=== PATIENT | female | born 1990 | race Caucasian/White ===

== ENCOUNTER 2021-09-30 04:20 | Emergency (ER) | payer MEDICAID, SELFPAY ==
[2021-09-30 04:22] VITALS: BP 140/102; PULSE 145; RESP 22; TEMP 36.8; O2SAT 95; BMI 34.4
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
[2021-09-30 05:03] LABS: Urine Pregnancy, HCG Qual. Negative (Negative)
[2021-09-30 05:44] VITALS: BP 152/78; PULSE 100; RESP 22; TEMP 36.8; O2SAT 97
== END 2021-09-30 05:46 | disposition home or self-care (01) ==
PROVIDERS: Emergency Provider Emergency Medicine
DX: S06.0X0A Concussion without loss of consciousness, initial encounter (principal); S50.11XA Contusion of right forearm, initial encounter; S40.011A Contusion of right shoulder, initial encounter; S80.01XA Contusion of right knee, initial encounter; S00.83XA Contusion of other part of head, initial encounter; T74.11XA Adult physical abuse, confirmed, initial encounter; Y04.2XXA Assault by strike against or bumped into by another person, initial encounter; Y92.019 Unspecified place in single-family (private) house as the place of occurrence of the external cause; Z88.2 Allergy status to sulfonamides; Z88.5 Allergy status to narcotic agent
CPT/HCPCS: 70450; 70486; 81025; 99282

== ENCOUNTER 2022-02-24 16:28 | Emergency (ER) | payer MEDICAID, SELFPAY ==
[2022-02-24 17:10] VITALS: BP 132/92; PULSE 77; RESP 18; TEMP 36.7; O2SAT 100; BMI 31.4
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
[2022-02-24 17:52] VITALS: BP 132/92; PULSE 77; RESP 18; TEMP 36.7; O2SAT 100
== END 2022-02-24 17:56 | disposition home or self-care (01) ==
PROVIDERS: Emergency Provider Nurse Practitioner
DX: J32.9 Chronic sinusitis, unspecified (principal)
CPT/HCPCS: 99212; G0463

== ENCOUNTER 2022-02-28 08:01 | Emergency (ER) | payer MEDICAID, SELFPAY ==
[2022-02-28 08:10] VITALS: BP 152/93; PULSE 80; RESP 19; TEMP 36.7; O2SAT 97; BMI 28.5
--- NOTE | 2022-02-28 08:34 | HMH.EDUTC ---
[facility] [place] Disposition Clinical Impression: Persistent dyspnea after COVID-19 Disposition: Home, Self-Care Condition on Discharge: Good Instructions: DI for COVID-19 (Suspected or Confirmed ) Additional Instructions: Follow up with PCP Wednesday Stop Prednisone Continue Amoxil Prescriptions: Guaifenesin/Dextromethorphan [Mucinex Dm ER 1,200-60 mg Tab] 1 tab PO BID 10 Days #20 tab Transmission Status: Pending to [facility] Albuterol Sulfate [Proair Hfa] 2 inh IH Q4HP PRN 30 Days #1 each PRN Reason: Wheezing Transmission Status: Pending to [facility] Referrals: Provider,Referral, MD [Primary Care Provider] - Forms: Work/School Release Time of Disposition: 11:03 Medical Decision Making - Medical Records Medical records reviewed: Yes: I reviewed the patient's medical records. - Jadon Inquiry Pt receiving controlled substance: No Vital Signs: 02/28/22 08:10 Temperature 98.0 F Temperature Source Oral Pulse Rate [Right Brachial] 80 Respiratory Rate 19 Blood Pressure [Right Arm] 152/93 H Blood Pressure Mean [Right Arm] 112 Blood Pressure Source [Right Arm] Automatic Cuff Blood Pressure Position [Right Arm] Sitting 02 Sat by Pulse Oximetry 97 Oxygen Delivery Method Room Air - Lab Data Lab results reviewed: Yes: I reviewed the patient's lab results. Lab Results 02/28/22 09:02: WBC 10.2, RBC 5.01, Hgb 15.0, Hct 43.9, MCV 87.6, MCH 29.9, MCHC 34.1, RDW 13.0, Plt Count 490 H, MPV 7.8, Neut % (Auto) 71.3, Lymph % (Auto) 21.4, [place] % (Auto) 6.2, Eos % (Auto) 0.4, Baso % (Auto) 0.6, Neut # (Auto) 7.3, Lymph # (Auto) 2.2, [place] # (Auto) 0.6, Eos # (Auto) 0.0, Baso # (Auto) 0.1 02/28/22 09:02: Sodium 138, Potassium 3.5, Chloride 101, Carbon Dioxide 25, Anion Gap 15.5 H, BUN 10, Creatinine 0.50 L, Estimated Creat Clear 183, Estimated GFR 141, Est GFR ( Amer) 171, Glucose 118 H, Calcium 9.0, Total Bilirubin < 0.1 L, AST 34, ALT 39, Alkaline Phosphatase 107, Total Protein 6.9, Albumin 4.0, Globulin 2.9, Albumin/Globulin Ratio 1.4 02/28/22 09:02: D-Dimer < 0.25 Result diagrams: 02/28/22 09:02 02/28/22 09:02 Orders (Tests/Meds): ORDERS Category Date Time Status 12-lead EKG Request [ECG Request by /Jessika] Stat Y 02/28/22 08:43 Ordered - Radiology Data #1 Image(s): Chest Image Reviewed: Yes I have reviewed radiologist's interpretation Preliminary Findings: Normal/NAD, No Infiltrates Seen PROCEDURE INFORMATION: Exam: XR Chest Exam date and time: 02/28/2022 8:42 AM Age: 32 years old Clinical indication: Shortness of breath and other: Chest heaviness TECHNIQUE: Imaging protocol: Radiologic exam of the chest. Views: 2 views. COMPARISON: No relevant prior studies available. FINDINGS: Lungs: No evidence of acute pulmonary process. Pleural spaces: Unremarkable. No pleural effusion. No pneumothorax. Heart/Mediastinum: Unremarkable. No cardiomegaly. Bones/joints: Unremarkable. Intraperitoneal space: There are surgical clips in the right upper quadrant. IMPRESSION: No evidence of acute pulmonary process. - ECG Data Tracing #1 I reviewed this ECG and interpreted as documented below: ECG initial impression date: 02/28/22 ECG initial impression time: 09:13 ECG normal with no acute: arrhythmias, ischemia, conduction abnormalities, chamber hypertrophy Normal Sinus Rhythm: Yes [facility] [place] HPI - General Stated complaint: dizzy, elevated bp Time Seen by Provider: 02/28/22 08:40 Mode of Arrival: Ambulatory Source of Information: Patient Limitations: No Limitations Description of Symptoms (Recalled from Triage Doc. by RN): PATIENT C/O ELEVATED BLOOD PRESSURE, DIZZINESS, LIGHT-HEADED, CHEST HEAVINESS, HEADACHE, AND TINGLING IN HANDS AND FEET X 3 DAYS HEENT Symptoms (Recalled from RN notes): Yes Resp Symptoms (Recalled from RN notes): No Skin Symptoms (Recalled from RN notes): No MS Remy
--- NOTE | 2022-02-28 08:43 | XR_ITS ---
PROCEDURE INFORMATION: Exam: XR Chest Exam date and time: 02/28/2022 8:42 AM Age: 32 years old Clinical indication: Shortness of breath and other: Chest heaviness TECHNIQUE: Imaging protocol: Radiologic exam of the chest. Views: 2 views. COMPARISON: No relevant prior studies available. FINDINGS: Lungs: No evidence of acute pulmonary process. Pleural spaces: Unremarkable. No pleural effusion. No pneumothorax. Heart/Mediastinum: Unremarkable. No cardiomegaly. Bones/joints: Unremarkable. Intraperitoneal space: There are surgical clips in the right upper quadrant. IMPRESSION: No evidence of acute pulmonary process.
--- NOTE | 2022-02-28 09:12 | ECG_ITS ---
APPROVED REPORT Exam: Resting ECG HR:67 bpm ECG Measurements Heart Rate 67 AXES NC 124 P 17 QRSd 80 QRS 63 QT 414 T 62 QTc 430 Conclusion SINUS RHYTHM WITH SINUS ARRHYTHMIA NORMAL ECG UNCONFIRMED REPORT Electronically signed by : Daniel Mathis MD 03/02/2022 14:06:07
[2022-02-28 09:20] LABS: Basophils # 0.1 K/mm3 (0-0.2); Basophils % 0.6 % (0.1-2.0); Eosinophils % 0.4 % (0.1-12.0); Hematocrit 43.9 % (37.0-47.0); Lymphocytes # 2.2 K/mm3 (0.7-4.5); Lymphocytes % 21.4 % (10-50); Mean Corpuscular HGB Conc 34.1 g/dL (31.8-35.4); Mean Corpuscular Hemoglobin 29.9 pg (27.0-31.2); Mean Corpuscular Volume 87.6 fl (81-99); Mean Platelet Volume 7.8 fl (7.4-10.4); Monocytes # 0.6 K/mm3 (0.1-1.0); Monocytes % 6.2 % (1.7-9.3); Neutrophils # 7.3 K/mm3 (1.8-7.8); Neutrophils % 71.3 % (37.0-80.0); Platelet Count 490 K/mm3 (142-424); Red Blood Count 5.01 M/mm3 (4.20-5.40); White Blood Count 10.2 K/mm3 (4.8-10.8)
[2022-02-28 09:24] LABS: Alanine Aminotransferase 39 U/L (12-78); Albumin/Globulin Ratio 1.4 (1.1-1.8); Alkaline Phosphatase 107 U/L (38-126); Anion Gap 15.5 mEq/L (5-15); Aspartate Amino Transferase 34 U/L (14-36); Blood Urea Nitrogen 10 mg/dl (7-17); Carbon Dioxide 25 mmol/L (22.0-30.0); Chloride 101 mmol/L (98-107); Creatinine Clearance Estimated 183 mL/min (50-200); Estimated Glomerular Filt Rate 141 ml/min (>60); GFR (African American) 171 ML/MIN (>60); Globulin 2.9 g/dL (1.3-3.2); Glucose 118 mg/dl (74-100); Potassium 3.5 mmoL/L (3.5-5.1); Sodium 138 mmol/L (136-145); Total Protein,Serum 6.9 g/dl (6.3-8.2)
[2022-02-28 09:34] LABS: Bilirubin,Total < 0.1 mg/dl (0.2-1.3)
[2022-02-28 10:47] LABS: D-Dimer < 0.25 ug/mL (0.0-0.5)
[2022-02-28 11:00] VITALS: BP 130/90; PULSE 80; RESP 19; TEMP 36.7; O2SAT 97
[2022-02-28 11:04] VITALS: BP 130/90
== END 2022-02-28 11:04 | disposition home or self-care (01) ==
PROVIDERS: Emergency Provider Physician Assistant
DX: R06.00 Dyspnea, unspecified (principal); Z86.16 Personal history of COVID-19; R42 Dizziness and giddiness; R03.0 Elevated blood-pressure reading, without diagnosis of hypertension; R07.9 Chest pain, unspecified; R51.9 Headache, unspecified; R53.83 Other fatigue; R23.2 Flushing; R53.1 Weakness; R06.02 Shortness of breath; R07.1 Chest pain on breathing; R05.9 Cough, unspecified; R09.89 Other specified symptoms and signs involving the circulatory and respiratory systems; Z72.0 Tobacco use; R20.2 Paresthesia of skin
CPT/HCPCS: 71046; 80053; 85025; 85378; 93005; 99212; G0463

== ENCOUNTER 2022-04-13 18:56 | Emergency (ER) | payer MEDICAID, SELFPAY ==
[2022-04-13 19:16] VITALS: BP 0/0; PULSE 0; RESP 0; TEMP -17.7; TEMP 0
== END 2022-04-13 19:17 | disposition left against medical advice (07) ==
LOC: UTC 18:59
PROVIDERS: Emergency Provider Nurse Practitioner Family; PCP Family Medicine
DX: Z53.21 Procedure and treatment not carried out due to patient leaving prior to being seen by health care provider (principal)

== ENCOUNTER 2022-05-06 11:39 | Emergency (ER) | payer OTHER, SELFPAY ==
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
--- NOTE | 2022-05-06 12:04 | XR_ITS ---
FINAL REPORT CLINICAL HISTORY: injury few days ago. still having pain FINDINGS: 2 views of the right humerus were obtained. There is no acute fracture or dislocation. The joint spaces appear intact. There is no acute soft tissue abnormality. IMPRESSION: No acute process. Reviewed, Interpreted and Dictated by Jorge Whalen III, MD Transcribed by Dandre Martins Authenticated and [facility]
--- NOTE | 2022-05-06 12:04 | XR_ITS ---
FINAL REPORT CLINICAL HISTORY: injury FINDINGS: RIGHT SHOULDER: 3 views of the right shoulder were obtained. There is no acute fracture or dislocation. The joint spaces are intact. There is no soft tissue abnormality. IMPRESSION: No acute fracture Reviewed, Interpreted and Dictated by Jorge Whalen III, MD Transcribed by Dandre Martins Authenticated and [facility]
--- NOTE | 2022-05-06 12:04 | XR_ITS ---
FINAL REPORT CLINICAL HISTORY: injury FINDINGS: 2 views of the right forearm were obtained. There is no acute fracture or dislocation. The joint spaces are intact. There is no soft tissue abnormality. IMPRESSION: No acute abnormality. Reviewed, Interpreted and Dictated by Jorge Whalen III, MD Transcribed by Dandre Martins Authenticated and [facility]
--- NOTE | 2022-05-06 12:04 | XR_ITS ---
FINAL REPORT CLINICAL HISTORY: injury FINDINGS: 3 views of the right hand were obtained. There is no acute fracture or dislocation. The joint spaces are intact. There is no soft tissue abnormality. IMPRESSION: No acute process. Reviewed, Interpreted and Dictated by Jorge Whalen III, MD Transcribed by Dandre Martins Authenticated and [facility]
[2022-05-06 12:09] VITALS: BP 151/90; PULSE 87; RESP 16; TEMP 36.8; O2SAT 97; BMI 33.0
[2022-05-06 12:29] LABS: UTC Pregnancy Test, Urine Negative (Negative)
[2022-05-06 13:24] VITALS: BP 151/90; PULSE 87; RESP 16; TEMP 36.8
== END 2022-05-06 13:31 | disposition home or self-care (01) ==
PROVIDERS: Emergency Provider Nurse Practitioner Family; PCP Family Medicine
DX: S69.91XA Unspecified injury of right wrist, hand and finger(s), initial encounter (principal); M79.601 Pain in right arm; M25.511 Pain in right shoulder; M79.641 Pain in right hand; W19.XXXA Unspecified fall, initial encounter
CPT/HCPCS: 73030; 73060; 73090; 73130; 81025; 99213; G0463

== ENCOUNTER → 2022-05-19 09:34 | Outpatient (CLI) | payer MEDICAID, SELFPAY ==
--- NOTE | 2022-05-19 09:34 | MR_ITS ---
FINAL REPORT TECHNIQUE: Multiplanar MR without contrast. CLINICAL HISTORY: right wrist injury. MOVING BOXES ON Apr AT WORK. BOX FELL AND FELT A POP. PAIN GOES UP ARM. NO SURGERY. FINDINGS: The osseous structures have an unremarkable appearance. Specifically no evidence of fracture or bone contusion is present. Carpal tunnel is unremarkable. The TFCC is intact. Visualized tendons are unremarkable. Major ligaments are intact. No cystic or soft tissue mass lesion is seen. IMPRESSION: Unremarkable exam. Reviewed, Interpreted and Dictated by Chiki Blount MD Transcribed by Dandre Martins Authenticated and . [facility]
--- NOTE | 2022-05-19 09:44 | XR_ITS ---
FINAL REPORT CLINICAL HISTORY: RULE OUT METAL FOREIGN BODY FOR MRI patient stated metal in eye on the right FINDINGS: ORBITS Look up and look down views were obtained. No fracture is identified. Density projecting over the left maxillary sinus could be due to sinusitis or mucosal thickening. No foreign body is identified. IMPRESSION: No radiopaque foreign body. Reviewed, Interpreted and Dictated by Chiki Blount MD Transcribed by Dandre Martins Authenticated and [facility]
== END ==
PROVIDERS: PCP Family Medicine; Visit Provider Orthopaedic Surgery
DX: S63.521A Sprain of radiocarpal joint of right wrist, initial encounter (principal); H05.53 Retained (old) foreign body following penetrating wound of bilateral orbits
CPT/HCPCS: 70200; 73221

== ENCOUNTER 2022-06-08 15:08 | Emergency (ER) | payer MEDICAID, SELFPAY ==
--- NOTE | 2022-06-08 15:18 | EXP.UTC ---
Discharge Plan Disposition Patient Disposition: Home, Self-Care Condition: Good Prescriptions Prescriptions: New azithromycin [Zithromax] 250 mg tablet 250 mg PO UD DOSE PK Qty: 6 0RF Rx Instructions: Take two (2) tablets today, then one (1) tablet days #2 thru #5 benzonatate [benzonatate] 100 mg capsule 100 mg PO TIDP PRN (Reason: Cough) Qty: 30 0RF methylprednisolone 4 mg Tablets,Dose Pack 4 mg PO DIRECTED Qty: 21 0RF Discontinued methylprednisolone 4 MG tablet 4 mg PO DIRECTED Qty: 21 0RF Rx Instructions: Take as directed on package instructions No Action diclofenac sodium [Voltaren Arthritis Pain] 1 % gel 2 g topical QID Qty: 100 1RF Rx Instructions: apply to single elbow, wrist or hand; for hand includes palm/fingers/back of hand fluticasone propionate 120 SPRAY bottle 1 spr NS DAILY Qty: 1 0RF Rx Instructions: one spray in each nostril daily amoxicillin-pot clavulanate 1 EACH tablet 1 tab PO BID Qty: 14 0RF dextromethorphan-guaifenesin 1 EACH tablet extended release 12 hr 1 tab PO BID 10 Days Qty: 20 0RF albuterol sulfate 8.5 GM HFA aerosol inhaler 2 inh IH Q4HP PRN (Reason: Wheezing) 30 Days Qty: 1 0RF ibuprofen [IBU] 800 mg tablet 800 mg PO Q8HP PRN (Reason: Moderate Pain) Qty: 30 0RF Referrals Follow up/Referrals: Julio Cesar Mireles [Primary Care Provider] - See instructions Activity Restrictions/Add. Instructions Additional Instructions/Restrictions: Drink plenty of fluids. Take tylenol or ibuprofen for pain or fever. Take the medications as directed. Follow up with your regular doctor. GO TO THE ER FOR ANY WORSENING SYMPTOMS Clinical Impressions Clinical Impression: Sinusitis Instructions Patient Instructions: Sinusitis, DI for Sinusitis Discharge ED Provider: Amandeep Thompson [facility] [place] HPI General Stated complaint: nose bleed,congestion,sore throat,RAMIREZ Time Seen by Provider: 06/08/22 15:18 History of Present Illness Provider Complaint: She states that for the past 1 week she has had a cough, sore throat, low grade fever and sinus congestion. Related Data Previous Rx's Medication Instructions Recorded amoxicillin 875 mg-potassium 1 tab PO BID #14 tabs 02/24/22 clavulanate 125 mg tablet fluticasone propionate 50 1 spr intranasal DAILY #1 ea 02/24/22 mcg/actuation nasal spray,suspension albuterol sulfate 90 mcg/actuation 2 inh inhalation Q4HP PRN Wheezing 02/28/22 aerosol inhaler 30 days #1 ea dextromethorphan-guaifenesin ER 60 1 tab PO BID 10 days #20 tabs 02/28/22 mg-1,200 mg tab,extend release,12hr ibuprofen 800 mg tablet (IBU) 800 mg PO Q8HP PRN Moderate Pain 05/06/22 #30 tabs diclofenac sodium 1 % topical gel 2 g topical QID #100 grams 05/28/22 (Voltaren Arthritis Pain) azithromycin 250 mg tablet 250 mg PO UD DOSE PK #6 tabs 06/08/22 (Zithromax) benzonatate 100 mg capsule 100 mg PO TIDP PRN Cough #30 caps 06/08/22 methylprednisolone 4 mg tablets in 4 mg PO DIRECTED #21 tabs 06/08/22 a dose pack Allergies Allergy/AdvReac Type Severity Reaction Status Date / Time codeine Allergy Verified 06/08/22 15:39 paroxetine [From Paxil] Allergy Verified 06/08/22 15:39 Sulfa (Sulfonamide Allergy Verified 06/08/22 15:39 Antibiotics) [facility] Social History Smoking Status: Current every day smoker alcohol intake: never current occupational status: other Travel in the last 8 weeks: None ROS Obtained: Yes All systems reviewed & no additional complaints except as documented Constitutional Constitutional: Reports chills and Reports fever(s) Eyes Eyes: Denies eye discharge ENT Ears, Nose, Mouth, and Throat: Reports as per HPI Cardiovascular Cardiovascular: Denies chest pain Respiratory Respiratory: Denies chest congestion and Reports cough Gastrointestinal Gastrointestingal: Reports nausea; Denies abdomi
[2022-06-08 15:35] VITALS: BP 118/77; PULSE 62; RESP 18; TEMP 36.9; O2SAT 97; BMI 33.0
[2022-06-08 15:51] LABS: UTC Strep Screen (Rapid) Negative (Negative)
[2022-06-08 16:17] LABS: Adenovirus,PCR Not Detected (NotDetected); Bordetella Pertussis Not Detected (NotDetected); Chlamydophila Pneumoniae, PCR Not Detected (NotDetected); Coronavirus 19, PCR Not Detected (NotDetected); Coronavirus 229E Not Detected (NotDetected); Coronavirus NL63 Not Detected (NotDetected); Coronavirus OC43 Not Detected (NotDetected); Coronovirus HKU1,PCR Not Detected (NotDetected); Human Metapneumovirus Not Detected (NotDetected); Influenza A, PCR Not Detected (NotDetected); Influenza AH1, 2009 Not Detected (NotDetected); Influenza AH1, PCR Not Detected (NotDetected); Influenza AH3,PCR Not Detected (NotDetected); Influenza B, PCR Not Detected (NotDetected); Mycoplasma Pneumoniae, PCR Not Detected (NotDetected); Parainfluenza 1, PCR Not Detected (NotDetected); Parainfluenza 2, PCR Not Detected (NotDetected); Parainfluenza 3, PCR Not Detected (NotDetected); Parainfluenza 4, PCR Not Detected (NotDetected); Respiratory Syncytial Virus Not Detected (NotDetected); Rhinovirus/Enterovirus Not Detected (NotDetected)
[2022-06-08 16:19] VITALS: BP 118/77; PULSE 62; RESP 18; TEMP 36.9
== END 2022-06-08 16:19 | disposition home or self-care (01) ==
PROVIDERS: Emergency Provider Nurse Practitioner Family; PCP Family Medicine
DX: J32.9 Chronic sinusitis, unspecified (principal)
CPT/HCPCS: 87581; 87632; 87798; 87880; 99212; C9803; G0463; U0003; U0005

== ENCOUNTER 2022-06-23 17:38 | Emergency (ER) | payer MEDICAID, SELFPAY ==
--- NOTE | 2022-06-23 19:11 | EXP.UTC ---
Discharge Plan Disposition Patient Disposition: Home, Self-Care Condition: Good Prescriptions Prescriptions: New benzonatate [benzonatate] 100 mg capsule 100 mg PO TIDP PRN (Reason: Cough) Qty: 30 0RF ondansetron 4 mg Tablet,Disintegrating 4 mg PO Q8H PRN (Reason: Nausea) Qty: 20 0RF No Action diclofenac sodium [Voltaren Arthritis Pain] 1 % gel 2 g topical QID Qty: 100 1RF Rx Instructions: apply to single elbow, wrist or hand; for hand includes palm/fingers/back of hand fluticasone propionate 120 SPRAY bottle 1 spr NS DAILY Qty: 1 0RF Rx Instructions: one spray in each nostril daily amoxicillin-pot clavulanate 1 EACH tablet 1 tab PO BID Qty: 14 0RF dextromethorphan-guaifenesin 1 EACH tablet extended release 12 hr 1 tab PO BID 10 Days Qty: 20 0RF albuterol sulfate 8.5 GM HFA aerosol inhaler 2 inh IH Q4HP PRN (Reason: Wheezing) 30 Days Qty: 1 0RF ibuprofen [IBU] 800 mg tablet 800 mg PO Q8HP PRN (Reason: Moderate Pain) Qty: 30 0RF azithromycin [Zithromax] 250 mg tablet 250 mg PO UD DOSE PK Qty: 6 0RF Rx Instructions: Take two (2) tablets today, then one (1) tablet days #2 thru #5 benzonatate [benzonatate] 100 mg capsule 100 mg PO TIDP PRN (Reason: Cough) Qty: 30 0RF methylprednisolone 4 mg Tablets,Dose Pack 4 mg PO DIRECTED Qty: 21 0RF Referrals Follow up/Referrals: Julio Cesar Mireles [Primary Care Provider] - See instructions Activity Restrictions/Add. Instructions Additional Instructions/Restrictions: Drink plenty of fluids. Take tylenol or ibuprofen for pain or fever. Take the medications as directed. Follow up with your regular doctor. GO TO THE ER FOR ANY WORSENING SYMPTOMS Clinical Impressions Clinical Impression: Viral syndrome Stand Alone Forms Stand Alone Forms: Work/School Release Instructions Patient Instructions: DI for Viral Syndrome Discharge ED Provider: Amandeep Thompson [facility] General Stated complaint: SORE THROAT, RAMIREZ, CONGESTION, BUG BITE Time Seen by Provider: 06/23/22 19:11 History of Present Illness Provider Complaint: She states that for the past 2 days she has had sore throat, chills, body aches and low grade fever. Related Data Previous Rx's Medication Instructions Recorded amoxicillin 875 mg-potassium 1 tab PO BID #14 tabs 02/24/22 clavulanate 125 mg tablet fluticasone propionate 50 1 spr intranasal DAILY #1 ea 02/24/22 mcg/actuation nasal spray,suspension albuterol sulfate 90 mcg/actuation 2 inh inhalation Q4HP PRN Wheezing 02/28/22 aerosol inhaler 30 days #1 ea dextromethorphan-guaifenesin ER 60 1 tab PO BID 10 days #20 tabs 02/28/22 mg-1,200 mg tab,extend release,12hr ibuprofen 800 mg tablet (IBU) 800 mg PO Q8HP PRN Moderate Pain 05/06/22 #30 tabs diclofenac sodium 1 % topical gel 2 g topical QID #100 grams 05/28/22 (Voltaren Arthritis Pain) azithromycin 250 mg tablet 250 mg PO UD DOSE PK #6 tabs 06/08/22 (Zithromax) benzonatate 100 mg capsule 100 mg PO TIDP PRN Cough #30 caps 06/08/22 methylprednisolone 4 mg tablets in 4 mg PO DIRECTED #21 tabs 06/08/22 a dose pack benzonatate 100 mg capsule 100 mg PO TIDP PRN Cough #30 caps 06/23/22 ondansetron 4 mg disintegrating 4 mg PO Q8H PRN Nausea #20 tabs 06/23/22 tablet Allergies Allergy/AdvReac Type Severity Reaction Status Date / Time codeine Allergy Verified 06/23/22 19:15 paroxetine [From Paxil] Allergy Verified 06/23/22 19:15 Sulfa (Sulfonamide Allergy Verified 06/23/22 19:15 Antibiotics) [facility] Social History Smoking Status: Current every day smoker alcohol intake: never current occupational status: other Travel in the last 8 weeks: None ROS Obtained: Yes All systems reviewed & no additional complaints except as documented Constitutional Constitutional: Reports chills and Reports fever(s) Eyes Eyes: Denies eye discha
[2022-06-23 19:12] VITALS: BP 121/79; PULSE 63; RESP 18; TEMP 36.9; O2SAT 99; BMI 33.0
[2022-06-23 19:23] LABS: UTC Strep Screen (Rapid) Negative (Negative)
[2022-06-23 19:24] LABS: UTC Influenza A Antigen Negative (Negative); UTC Influenza B Antigen Negative (Negative)
[2022-06-23 19:56] VITALS: BP 121/79; PULSE 63; RESP 18; TEMP 36.9
[2022-06-23 20:08] LABS: Adenovirus,PCR Not Detected (NotDetected); Bordetella Pertussis Not Detected (NotDetected); Chlamydophila Pneumoniae, PCR Not Detected (NotDetected); Coronavirus 19, PCR Not Detected (NotDetected); Coronavirus 229E Not Detected (NotDetected); Coronavirus NL63 Not Detected (NotDetected); Coronavirus OC43 Not Detected (NotDetected); Coronovirus HKU1,PCR Not Detected (NotDetected); Human Metapneumovirus Not Detected (NotDetected); Influenza A, PCR Not Detected (NotDetected); Influenza AH1, 2009 Not Detected (NotDetected); Influenza AH1, PCR Not Detected (NotDetected); Influenza AH3,PCR Not Detected (NotDetected); Influenza B, PCR Not Detected (NotDetected); Mycoplasma Pneumoniae, PCR Not Detected (NotDetected); Parainfluenza 1, PCR Not Detected (NotDetected); Parainfluenza 2, PCR Not Detected (NotDetected); Parainfluenza 3, PCR Not Detected (NotDetected); Parainfluenza 4, PCR Not Detected (NotDetected); Respiratory Syncytial Virus Not Detected (NotDetected)
[2022-06-24 14:43] LABS: Rhinovirus/Enterovirus Detected (NotDetected)
== END 2022-06-23 20:05 | disposition home or self-care (01) ==
PROVIDERS: Emergency Provider Nurse Practitioner Family; PCP Family Medicine
DX: J02.9 Acute pharyngitis, unspecified (principal); R51.9 Headache, unspecified; R09.89 Other specified symptoms and signs involving the circulatory and respiratory systems; B34.9 Viral infection, unspecified
CPT/HCPCS: 87581; 87632; 87798; 87804; 87880; 99212; C9803; G0463; U0003; U0005

== ENCOUNTER 2022-07-24 17:36 | Emergency (ER) | payer MEDICAID, SELFPAY ==
[2022-07-24 19:00] VITALS: BP 160/109; PULSE 72; RESP 18; TEMP 36.9; O2SAT 98; BMI 34.0
--- NOTE | 2022-07-24 19:14 | EXP.UTC ---
Discharge Plan Disposition Patient Disposition: Home, Self-Care Condition: Good Prescriptions Prescriptions: New benzonatate [benzonatate] 100 mg capsule 100 mg PO TIDP PRN (Reason: Cough) Qty: 30 0RF oseltamivir [Tamiflu] 75 mg capsule 75 mg PO BID Qty: 10 0RF cefdinir 300 mg capsule 300 mg PO BID Qty: 20 0RF No Action diclofenac sodium [Voltaren Arthritis Pain] 1 % gel 2 g topical QID Qty: 100 1RF Rx Instructions: apply to single elbow, wrist or hand; for hand includes palm/fingers/back of hand fluticasone propionate 120 SPRAY bottle 1 spr NS DAILY Qty: 1 0RF Rx Instructions: one spray in each nostril daily benzonatate [benzonatate] 100 mg capsule 100 mg PO TIDP PRN (Reason: Cough) Qty: 30 0RF dextromethorphan-guaifenesin 1 EACH tablet extended release 12 hr 1 tab PO BID 10 Days Qty: 20 0RF albuterol sulfate 8.5 GM HFA aerosol inhaler 2 inh IH Q4HP PRN (Reason: Wheezing) 30 Days Qty: 1 0RF ibuprofen [IBU] 800 mg tablet 800 mg PO Q8HP PRN (Reason: Moderate Pain) Qty: 30 0RF benzonatate [benzonatate] 100 mg capsule 100 mg PO TIDP PRN (Reason: Cough) Qty: 30 0RF Referrals Follow up/Referrals: Julio Cesar Mireles [Primary Care Provider] - See instructions Activity Restrictions/Add. Instructions Additional Instructions/Restrictions: Drink plenty of fluids. Take tylenol or ibuprofen for pain or fever. Take the medications as directed. Follow up with your regular doctor. GO TO THE ER FOR ANY WORSENING SYMPTOMS Clinical Impressions Clinical Impression: Sinusitis Stand Alone Forms Stand Alone Forms: Work/School Release Discharge ED Provider: Amandeep Thompson [facility] [place] HPI General Stated complaint: congestion Mode of Arrival: Ambulatory Source of Information: Patient Limitations: No Limitations Time Seen by Provider: 07/24/22 19:14 Description of Symptoms (Recalled from Triage Doc. by RN): pt comes in with c/o cough, congestion, sinus pressure, headache, fever off and on. symptoms ongoing for 1 month HEENT Symptoms (Recalled from RN notes): Yes Resp Symptoms (Recalled from RN notes): Yes Skin Symptoms (Recalled from RN notes): No MS Symptoms (Recalled from RN notes): No Functional Status (Recalled from RN notes): n/a History of Present Illness Provider Complaint: She states that for the past 2 days she has had sore throat, chills, body aches and low grade fever. She has felt bad for the past 1 month. Related Data Previous Rx's Medication Instructions Recorded fluticasone propionate 50 1 spr intranasal DAILY #1 ea 02/24/22 mcg/actuation nasal spray,suspension albuterol sulfate 90 mcg/actuation 2 inh inhalation Q4HP PRN Wheezing 02/28/22 aerosol inhaler 30 days #1 ea dextromethorphan-guaifenesin ER 60 1 tab PO BID 10 days #20 tabs 02/28/22 mg-1,200 mg tab,extend release,12hr ibuprofen 800 mg tablet (IBU) 800 mg PO Q8HP PRN Moderate Pain 05/06/22 #30 tabs diclofenac sodium 1 % topical gel 2 g topical QID #100 grams 05/28/22 (Voltaren Arthritis Pain) benzonatate 100 mg capsule 100 mg PO TIDP PRN Cough #30 caps 06/08/22 benzonatate 100 mg capsule 100 mg PO TIDP PRN Cough #30 caps 06/23/22 benzonatate 100 mg capsule 100 mg PO TIDP PRN Cough #30 caps 07/24/22 cefdinir 300 mg capsule 300 mg PO BID #20 caps 07/24/22 oseltamivir 75 mg capsule (Tamiflu) 75 mg PO BID #10 caps 07/24/22 Allergies Allergy/AdvReac Type Severity Reaction Status Date / Time codeine Allergy Verified 07/24/22 19:02 paroxetine [From Paxil] Allergy Verified 07/24/22 19:02 Sulfa (Sulfonamide Allergy Verified 07/24/22 19:02 Antibiotics) Worker's Comp Is this a Worker's Comp case?: No [facility] Disclaimer: The information contained in this section may have been updated after the patient was seen, as this information can be updated by other users. Social History Smoking Status: Current every day
[2022-07-24 19:37] VITALS: BP 160/109; PULSE 72; RESP 18; TEMP 36.9
== END 2022-07-24 19:40 | disposition home or self-care (01) ==
PROVIDERS: Emergency Provider Nurse Practitioner Family; PCP Family Medicine
DX: J32.9 Chronic sinusitis, unspecified (principal)
CPT/HCPCS: 99212; G0463

== ENCOUNTER 2022-10-08 13:07 | Emergency (ER) | payer MEDICAID, SELFPAY ==
[2022-10-08 13:21] VITALS: BP 147/84; PULSE 82; RESP 18; TEMP 36.7; O2SAT 97; BMI 34.0
[2022-10-08 13:32] LABS: UTC Influenza A Antigen Negative (Negative)
[2022-10-08 13:33] LABS: UTC Influenza B Antigen Negative (Negative)
--- NOTE | 2022-10-08 14:08 | EXP.UTC ---
Discharge Plan Disposition Patient Disposition: Home, Self-Care Condition: Good Prescriptions Prescriptions: New amoxicillin [amoxicillin] 875 mg tablet 875 mg PO Q12H Qty: 20 0RF benzonatate [benzonatate] 100 mg capsule 100 mg PO TIDP PRN (Reason: Cough) Qty: 30 0RF methylprednisolone 4 mg Tablets,Dose Pack 4 mg PO DIRECTED Qty: 21 0RF No Action diclofenac sodium [Voltaren Arthritis Pain] 1 % gel 2 g topical QID Qty: 100 1RF Rx Instructions: apply to single elbow, wrist or hand; for hand includes palm/fingers/back of hand fluticasone propionate 120 SPRAY bottle 1 spr NS DAILY Qty: 1 0RF Rx Instructions: one spray in each nostril daily benzonatate [benzonatate] 100 mg capsule 100 mg PO TIDP PRN (Reason: Cough) Qty: 30 0RF benzonatate [benzonatate] 100 mg capsule 100 mg PO TIDP PRN (Reason: Cough) Qty: 30 0RF oseltamivir [Tamiflu] 75 mg capsule 75 mg PO BID Qty: 10 0RF cefdinir 300 mg capsule 300 mg PO BID Qty: 20 0RF dextromethorphan-guaifenesin 1 EACH tablet extended release 12 hr 1 tab PO BID 10 Days Qty: 20 0RF albuterol sulfate 8.5 GM HFA aerosol inhaler 2 inh IH Q4HP PRN (Reason: Wheezing) 30 Days Qty: 1 0RF ibuprofen [IBU] 800 mg tablet 800 mg PO Q8HP PRN (Reason: Moderate Pain) Qty: 30 0RF benzonatate [benzonatate] 100 mg capsule 100 mg PO TIDP PRN (Reason: Cough) Qty: 30 0RF Referrals Follow up/Referrals: Julio Cesar Mireles [Primary Care Provider] - See instructions Activity Restrictions/Add. Instructions Additional Instructions/Restrictions: Drink plenty of fluids. Take tylenol or ibuprofen for pain or fever. Take the medications as directed. Follow up with your regular doctor. GO TO THE ER FOR ANY WORSENING SYMPTOMS Clinical Impressions Clinical Impression: Sinusitis Stand Alone Forms Stand Alone Forms: Work/School Release Instructions Patient Instructions: Sinusitis, DI for Sinusitis Discharge ED Provider: Amandeep Thompson [facility] General Stated complaint: Congestion drainage headache chills Mode of Arrival: Ambulatory Source of Information: Patient Limitations: No Limitations Time Seen by Provider: 10/08/22 14:08 Description of Symptoms (Recalled from Triage Doc. by RN): Patient repots headache, chills, hotflashes, fever and body aches HEENT Symptoms (Recalled from RN notes): Yes Resp Symptoms (Recalled from RN notes): No Skin Symptoms (Recalled from RN notes): No MS Symptoms (Recalled from RN notes): No Functional Status (Recalled from RN notes): wnl History of Present Illness Provider Complaint: She states that for the past 5 days she has had sinus congestion, sore throat, and a cough. Related Data Previous Rx's Medication Instructions Recorded fluticasone propionate 50 1 spr intranasal DAILY #1 ea 02/24/22 mcg/actuation nasal spray,suspension albuterol sulfate 90 mcg/actuation 2 inh inhalation Q4HP PRN Wheezing 02/28/22 aerosol inhaler 30 days #1 ea dextromethorphan-guaifenesin ER 60 1 tab PO BID 10 days #20 tabs 02/28/22 mg-1,200 mg tab,extend release,12hr ibuprofen 800 mg tablet (IBU) 800 mg PO Q8HP PRN Moderate Pain 05/06/22 #30 tabs diclofenac sodium 1 % topical gel 2 g topical QID #100 grams 05/28/22 (Voltaren Arthritis Pain) benzonatate 100 mg capsule 100 mg PO TIDP PRN Cough #30 caps 06/08/22 benzonatate 100 mg capsule 100 mg PO TIDP PRN Cough #30 caps 06/23/22 benzonatate 100 mg capsule 100 mg PO TIDP PRN Cough #30 caps 07/24/22 cefdinir 300 mg capsule 300 mg PO BID #20 caps 07/24/22 oseltamivir 75 mg capsule (Tamiflu) 75 mg PO BID #10 caps 07/24/22 amoxicillin 875 mg tablet 875 mg PO Q12H #20 tabs 10/08/22 benzonatate 100 mg capsule 100 mg PO TIDP PRN Cough #30 caps 10/08/22 methylprednisolone 4 mg tablets in 4 mg PO DIRECTED #21 tabs 10/08/22 a dose pack Allergies Allergy/AdvReac Type Severity Reaction Status Date / Time codeine Allergy Verified 08/20
[2022-10-08 14:34] VITALS: BP 140/86; PULSE 82; RESP 18; TEMP 36.7; O2SAT 97
== END 2022-10-08 14:47 | disposition home or self-care (01) ==
PROVIDERS: Emergency Provider Nurse Practitioner Family; PCP Family Medicine
DX: J32.9 Chronic sinusitis, unspecified (principal)
CPT/HCPCS: 87804; 99212; 99213; G0463

== ENCOUNTER 2022-12-02 08:10 | Emergency (ER) | payer MEDICAID, SELFPAY ==
[2022-12-02 08:15] VITALS: BP 122/76; PULSE 69; RESP 20; TEMP 37.2; O2SAT 99; BMI 32.9
--- NOTE | 2022-12-02 08:23 | EXP.UTC ---
Discharge Plan Disposition Patient Disposition: Home, Self-Care Condition: Good Prescriptions Prescriptions: New azithromycin [Zithromax] 250 mg tablet 250 mg PO UD DOSE PK Qty: 6 0RF Rx Instructions: Take two (2) tablets today, then one (1) tablet days #2 thru #5 benzonatate [benzonatate] 100 mg capsule 100 mg PO TIDP PRN (Reason: Cough) Qty: 30 0RF methylprednisolone 4 mg Tablets,Dose Pack 4 mg PO DIRECTED Qty: 21 0RF No Action diclofenac sodium [Voltaren Arthritis Pain] 1 % gel 2 g topical QID Qty: 100 1RF Rx Instructions: apply to single elbow, wrist or hand; for hand includes palm/fingers/back of hand fluticasone propionate 120 SPRAY bottle 1 spr NS DAILY Qty: 1 0RF Rx Instructions: one spray in each nostril daily benzonatate [benzonatate] 100 mg capsule 100 mg PO TIDP PRN (Reason: Cough) Qty: 30 0RF benzonatate [benzonatate] 100 mg capsule 100 mg PO TIDP PRN (Reason: Cough) Qty: 30 0RF oseltamivir [Tamiflu] 75 mg capsule 75 mg PO BID Qty: 10 0RF cefdinir 300 mg capsule 300 mg PO BID Qty: 20 0RF amoxicillin [amoxicillin] 875 mg tablet 875 mg PO Q12H Qty: 20 0RF benzonatate [benzonatate] 100 mg capsule 100 mg PO TIDP PRN (Reason: Cough) Qty: 30 0RF methylprednisolone 4 mg Tablets,Dose Pack 4 mg PO DIRECTED Qty: 21 0RF dextromethorphan-guaifenesin 1 EACH tablet extended release 12 hr 1 tab PO BID 10 Days Qty: 20 0RF albuterol sulfate 8.5 GM HFA aerosol inhaler 2 inh IH Q4HP PRN (Reason: Wheezing) 30 Days Qty: 1 0RF ibuprofen [IBU] 800 mg tablet 800 mg PO Q8HP PRN (Reason: Moderate Pain) Qty: 30 0RF benzonatate [benzonatate] 100 mg capsule 100 mg PO TIDP PRN (Reason: Cough) Qty: 30 0RF Referrals Follow up/Referrals: Provider,Referral, MD [Primary Care Provider] - See instructions Activity Restrictions/Add. Instructions Additional Instructions/Restrictions: Drink plenty of fluids. Take tylenol or ibuprofen for pain or fever. Take the medications as directed. Follow up with your regular doctor. GO TO THE ER FOR ANY WORSENING SYMPTOMS Clinical Impressions Clinical Impression: Sinusitis, Otitis media Stand Alone Forms Stand Alone Forms: Work/School Release Instructions Patient Instructions: Sinusitis, DI for Sinusitis Discharge ED Provider: Amandeep Thompson [facility] General Stated complaint: Congestion, drainage, sore throat Mode of Arrival: Ambulatory Source of Information: Patient Limitations: No Limitations Time Seen by Provider: 12/02/22 08:23 Description of Symptoms (Recalled from Triage Doc. by RN): PATIENT C/O SINUS DRAINAGE AND PRESSURE, YELLOW MUCOUS, CHEST CONGESTION, COUGH, AND VOMITING WITH COUGH X 2 DAYS HEENT Symptoms (Recalled from RN notes): Yes Resp Symptoms (Recalled from RN notes): Yes Skin Symptoms (Recalled from RN notes): No MS Symptoms (Recalled from RN notes): No Functional Status (Recalled from RN notes): WNL History of Present Illness Provider Complaint: She states that for the past 2 days she has had sore throat, sinus congestion, body aches and malaise. Related Data Previous Rx's Medication Instructions Recorded fluticasone propionate 50 1 spr intranasal DAILY #1 ea 02/24/22 mcg/actuation nasal spray,suspension albuterol sulfate 90 mcg/actuation 2 inh inhalation Q4HP PRN Wheezing 02/28/22 aerosol inhaler 30 days #1 ea dextromethorphan-guaifenesin ER 60 1 tab PO BID 10 days #20 tabs 02/28/22 mg-1,200 mg tab,extend release,12hr ibuprofen 800 mg tablet (IBU) 800 mg PO Q8HP PRN Moderate Pain 05/06/22 #30 tabs diclofenac sodium 1 % topical gel 2 g topical QID #100 grams 05/28/22 (Voltaren Arthritis Pain) benzonatate 100 mg capsule 100 mg PO TIDP PRN Cough #30 caps 06/08/22 benzonatate 100 mg capsule 100 mg PO TIDP PRN Cough #30 caps 06/23/22 benzonatate 100 mg capsule 100 mg PO TIDP PRN Cough #30 caps 07/24/22 cefdinir 300 mg capsule 3
[2022-12-02 08:39] VITALS: BP 122/76; PULSE 69; RESP 20; TEMP 37.2; O2SAT 99
== END 2022-12-02 08:42 | disposition home or self-care (01) ==
PROVIDERS: Emergency Provider Nurse Practitioner Family
DX: J01.90 Acute sinusitis, unspecified (principal); H66.93 Otitis media, unspecified, bilateral
CPT/HCPCS: 99212; 99214; G0463

== ENCOUNTER 2023-01-28 15:22 | Emergency (ER) | payer MEDICAID, SELFPAY ==
[2023-01-28 15:22] VITALS: BP 140/93; PULSE 76; RESP 18; TEMP 37.5; O2SAT 97; BMI 33.0
--- NOTE | 2023-01-28 15:27 | EXP.UTC ---
Discharge Plan Disposition Patient Disposition: Home, Self-Care Condition: Good Prescriptions Prescriptions: New azithromycin [Zithromax] 250 mg tablet 250 mg PO UD DOSE PK Qty: 6 0RF Rx Instructions: Take two (2) tablets today, then one (1) tablet days #2 thru #5 benzonatate [benzonatate] 100 mg capsule 100 mg PO TIDP PRN (Reason: Cough) Qty: 30 0RF methylprednisolone 4 mg Tablets,Dose Pack 4 mg PO DIRECTED Qty: 21 0RF No Action diclofenac sodium [Voltaren Arthritis Pain] 1 % gel 2 g topical QID Qty: 100 1RF Rx Instructions: apply to single elbow, wrist or hand; for hand includes palm/fingers/back of hand fluticasone propionate 120 SPRAY bottle 1 spr NS DAILY Qty: 1 0RF Rx Instructions: one spray in each nostril daily benzonatate [benzonatate] 100 mg capsule 100 mg PO TIDP PRN (Reason: Cough) Qty: 30 0RF benzonatate [benzonatate] 100 mg capsule 100 mg PO TIDP PRN (Reason: Cough) Qty: 30 0RF oseltamivir [Tamiflu] 75 mg capsule 75 mg PO BID Qty: 10 0RF cefdinir 300 mg capsule 300 mg PO BID Qty: 20 0RF amoxicillin [amoxicillin] 875 mg tablet 875 mg PO Q12H Qty: 20 0RF benzonatate [benzonatate] 100 mg capsule 100 mg PO TIDP PRN (Reason: Cough) Qty: 30 0RF methylprednisolone 4 mg Tablets,Dose Pack 4 mg PO DIRECTED Qty: 21 0RF dextromethorphan-guaifenesin 1 EACH tablet extended release 12 hr 1 tab PO BID 10 Days Qty: 20 0RF albuterol sulfate 8.5 GM HFA aerosol inhaler 2 inh IH Q4HP PRN (Reason: Wheezing) 30 Days Qty: 1 0RF ibuprofen [IBU] 800 mg tablet 800 mg PO Q8HP PRN (Reason: Moderate Pain) Qty: 30 0RF benzonatate [benzonatate] 100 mg capsule 100 mg PO TIDP PRN (Reason: Cough) Qty: 30 0RF azithromycin [Zithromax] 250 mg tablet 250 mg PO UD DOSE PK Qty: 6 0RF Rx Instructions: Take two (2) tablets today, then one (1) tablet days #2 thru #5 benzonatate [benzonatate] 100 mg capsule 100 mg PO TIDP PRN (Reason: Cough) Qty: 30 0RF methylprednisolone 4 mg Tablets,Dose Pack 4 mg PO DIRECTED Qty: 21 0RF Referrals Follow up/Referrals: Julio Cesar Mireles [Primary Care Provider] - See instructions Activity Restrictions/Add. Instructions Additional Instructions/Restrictions: Drink plenty of fluids. Take tylenol or ibuprofen for pain or fever. Take the medications as directed. Follow up with your regular doctor. GO TO THE ER FOR ANY WORSENING SYMPTOMS Clinical Impressions Clinical Impression: Sinusitis Stand Alone Forms Stand Alone Forms: Work/School Release Instructions Patient Instructions: Sinusitis, DI for Sinusitis Discharge ED Provider: Amandeep Thompson [facility] General Stated complaint: ear pain, congestion Time Seen by Provider: 01/28/23 15:26 History of Present Illness Provider Complaint: She states that for the past 4 days she has had worsening sinus congestion and left ear pain. Related Data Previous Rx's Medication Instructions Recorded fluticasone propionate 50 1 spr intranasal DAILY #1 ea 02/24/22 mcg/actuation nasal spray,suspension albuterol sulfate 90 mcg/actuation 2 inh inhalation Q4HP PRN Wheezing 02/28/22 aerosol inhaler 30 days #1 ea dextromethorphan-guaifenesin ER 60 1 tab PO BID 10 days #20 tabs 02/28/22 mg-1,200 mg tab,extend release,12hr ibuprofen 800 mg tablet (IBU) 800 mg PO Q8HP PRN Moderate Pain 05/06/22 #30 tabs diclofenac sodium 1 % topical gel 2 g topical QID #100 grams 05/28/22 (Voltaren Arthritis Pain) benzonatate 100 mg capsule 100 mg PO TIDP PRN Cough #30 caps 06/08/22 benzonatate 100 mg capsule 100 mg PO TIDP PRN Cough #30 caps 06/23/22 benzonatate 100 mg capsule 100 mg PO TIDP PRN Cough #30 caps 07/24/22 cefdinir 300 mg capsule 300 mg PO BID #20 caps 07/24/22 oseltamivir 75 mg capsule (Tamiflu) 75 mg PO BID #10 caps 07/24/22 amoxicillin 875 mg tablet 875 mg PO Q12H #20 tabs 10/08/22 benzonatate 100 mg capsule 100 m
[2023-01-28 16:11] VITALS: BP 140/93; PULSE 76; RESP 18; TEMP 37.5; O2SAT 97
== END 2023-01-28 16:12 | disposition home or self-care (01) ==
PROVIDERS: Emergency Provider Nurse Practitioner Family; PCP Family Medicine
DX: J01.90 Acute sinusitis, unspecified (principal); H66.93 Otitis media, unspecified, bilateral; R50.9 Fever, unspecified; F17.210 Nicotine dependence, cigarettes, uncomplicated
CPT/HCPCS: 99212; 99214; G0463

== ENCOUNTER 2023-04-10 16:38 | Emergency (ER) | payer MEDICAID, SELFPAY ==
[2023-04-10 17:30] VITALS: BP 134/82; PULSE 66; RESP 20; TEMP 37.1; O2SAT 100; BMI 30.2
--- NOTE | 2023-04-10 17:41 | EXP.UTC ---
Discharge Plan Disposition Patient Disposition: Home, Self-Care Condition: Good Referrals Follow up/Referrals: Provider,Referral, [Primary Care Provider] - See instructions Activity Restrictions/Add. Instructions Additional Instructions/Restrictions: covid swab was sent to lab, call tomorrow for results. self isolate until test results are known to be negative No sign of a bacterial infection. Likely viral. Viruses can take 7-14 days to run their course. Nasal saline and bulb syringe or nose Nadege to remove nasal drainage to help with nasal congestion. Hard to eat, drink, sleep with nasal congestion so important to keep this cleaned out. Monitor temp. Tylenol or Motrin as needed for pain or fever Encourage fluids, water, Gatorade, Powerade, Pedialyte if /toddler/child Warm salt water gargles Warm fluids Sore throat lozenges Sleep elevated Humidifier/vaporizer Follow-up immediately for new or worsening symptoms or no noticeable improvement over the next 48-72 hours. Clinical Impressions Clinical Impression: Close exposure to 2019-nCoV Upper respiratory infection Qualifiers: URI type: unspecified viral URI Qualified Code(s): J06.9 - Acute upper respiratory infection, unspecified Instructions Patient Instructions: DI for Viral Upper Respiratory Infection -- Adult Discharge ED Provider: Trevin ([facility])[place] [facility] HPI General Stated complaint: exposed to covid and ear ache Mode of Arrival: Ambulatory Source of Information: Patient Limitations: No Limitations Time Seen by Provider: 04/10/23 17:41 Description of Symptoms (Recalled from Triage Doc. by RN): PATIENT C/O HEADACHE, EAR PAIN, SINUS PRESSURE, AND PAIN WITH INSPIRATION X 3 DAYS HEENT Symptoms (Recalled from RN notes): Yes Resp Symptoms (Recalled from RN notes): Yes Skin Symptoms (Recalled from RN notes): No MS Symptoms (Recalled from RN notes): No Functional Status (Recalled from RN notes): WNL History of Present Illness Provider Complaint: 33 yr old female presents for RAMIREZ, ear pain,sinus pressure and pain with breathing for 3 days. has been exposed to covid Related Data Allergies Allergy/AdvReac Type Severity Reaction Status Date / Time codeine Allergy Verified 08/20/22 14:15 paroxetine [From Paxil] Allergy Verified 08/20/22 14:15 Sulfa (Sulfonamide Allergy Verified 08/20/22 14:15 Antibiotics) Worker's Comp Is this a Worker's Comp case?: No [facility] Disclaimer: The information contained in this section may have been updated after the patient was seen, as this information can be updated by other users. Social History , [employer]) Smoking Status: Current every day smoker alcohol intake: never current occupational status: other Travel in the last 8 weeks: None ROS Obtained: Yes All systems reviewed & no additional complaints except as documented Constitutional Constitutional: Reports system reviewed and no additional complaints, except as documented, Reports as per HPI and Reports headache(s) Eyes Eyes: Reports system reviewed and no additional complaints, except as documented ENT Ears, Nose, Mouth, and Throat: Reports system reviewed and no additional complaints, except as documented, Reports as per HPI, Reports headache(s), Reports nasal congestion, Reports nasal discharge, Reports sinus pressure and Reports sore throat Cardiovascular Cardiovascular: Reports system reviewed and no additional complaints, except as documented Respiratory Respiratory: Reports system reviewed and no additional complaints, except as documented, Reports as per HPI, Reports chest congestion, Reports cough and Reports pain on inspiration Gastrointestinal Gastrointestingal: Reports system reviewed and no additional complaints, except as documented Integumentary/Breasts Skin/Breast: Reports system reviewed and no additional complaints, except as documented Neurologic Neurologic: Reports system reviewed a
[2023-04-10 17:48] VITALS: BP 134/82; PULSE 66; RESP 20; TEMP 37.1; O2SAT 100
[2023-04-10 18:17] LABS: Adenovirus,PCR Not Detected (NotDetected); Bordetella Pertussis Not Detected (NotDetected); Chlamydophila Pneumoniae, PCR Not Detected (NotDetected); Coronavirus 19, PCR Not Detected (NotDetected); Coronavirus 229E Not Detected (NotDetected); Coronavirus NL63 Not Detected (NotDetected); Coronavirus OC43 Not Detected (NotDetected); Coronovirus HKU1,PCR Not Detected (NotDetected); Human Metapneumovirus Not Detected (NotDetected); Influenza A, PCR Not Detected (NotDetected); Influenza AH1, 2009 Not Detected (NotDetected); Influenza AH1, PCR Not Detected (NotDetected); Influenza AH3,PCR Not Detected (NotDetected); Influenza B, PCR Not Detected (NotDetected); Mycoplasma Pneumoniae, PCR Not Detected (NotDetected); Parainfluenza 1, PCR Not Detected (NotDetected); Parainfluenza 2, PCR Not Detected (NotDetected); Parainfluenza 3, PCR Not Detected (NotDetected); Parainfluenza 4, PCR Not Detected (NotDetected); Respiratory Syncytial Virus Not Detected (NotDetected); Rhinovirus/Enterovirus Not Detected (NotDetected)
== END 2023-04-10 18:03 | disposition home or self-care (01) ==
PROVIDERS: Emergency Provider Nurse Practitioner Family
DX: J06.9 Acute upper respiratory infection, unspecified (principal); R51.9 Headache, unspecified; H92.03 Otalgia, bilateral; F17.210 Nicotine dependence, cigarettes, uncomplicated; Z20.822 Contact with and (suspected) exposure to COVID-19
CPT/HCPCS: 87581; 87632; 87798; 99212; 99213; G0463

== ENCOUNTER 2024-11-16 17:49 | Outpatient (CLI) | payer SELFPAY ==
[2024-11-16 20:18] LABS: Coronavirus 19, PCR Not Detected (NotDetected); Influenza B, PCR Not Detected (NotDetected)
[2024-11-16 20:53] LABS: Influenza A, PCR Detected (NotDetected)
== END 2024-11-16 23:59 | disposition home or self-care (01) ==
LOC: LAB.DROPOF 11-17 13:43
PROVIDERS: PCP Student in an Organized Health Care Education/Training Program; Visit Provider Student in an Organized Health Care Education/Training Program
DX: R05.9 Cough, unspecified (principal); J09.X2 Influenza due to identified novel influenza A virus with other respiratory manifestations; F17.200 Nicotine dependence, unspecified, uncomplicated
CPT/HCPCS: 87636